=== PATIENT | female | born 1985 | race Two or more races ===

== ENCOUNTER 2024-09-01 08:15 | Emergency (ER) | payer OTHER ==
[~2024-09-01] VITALS: Ht 167.6 cm; Wt 105.7 kg
[2024-09-01 08:20] VITALS: BP 122/88; O2SAT 100
[2024-09-01] MEDS ORDERED: DOXYCYCLINE HYCLATE 100MG IV ONE (10:30)
[2024-09-01] MEDS ORDERED: CEFTRIAXONE SODIUM 2,000 MG VIAL ONE (10:44)
[2024-09-01] MEDS ORDERED: CEFTRIAXONE SODIUM 1,000 MG VIAL IV ONE (10:45)
[2024-09-01] MEDS ORDERED: DOXYCYCLINE HY100 M3 PO (10:56)
[2024-09-01] MEDS ORDERED: CHLORASEPTIC M118 ML MM (10:56)
== END 2024-09-01 12:07 | disposition home or self-care (01) ==
LOC: ER 08:15
DX: J02.9 Acute pharyngitis, unspecified (principal); A64 Unspecified sexually transmitted disease